=== PATIENT | male | born 2005 | race African-American/Black ===

== ENCOUNTER 2025-05-24 16:37 | Observation (INO) ==
--- NOTE | 2025-05-24 18:41 | Emergency Department Note ---
ED Provider Note History of Present Illness Chief Complaint: Infection Stated Complaint: TOOTH INFECTION, POSS SPREAD TO NECK, SOB Time Seen by Provider: 05/24/25 18:21 Source: patient Mode of arrival: ambulatory Limitations: no limitations Patient is a 19-year-old male who presents to the emergency department with complaints of possible infection in his throat or neck. Patient states that he has a dental infection and was on antibiotics but now he is having trouble breathing and swallowing, noting that the infection does not seem to be resolving. Patient states that he has had the symptoms for approximately a week. Patient notes that he is able to tolerate oral foods and fluids but has increased pain with swallowing. Patient denies any chest pain. Home Medications Medication Instructions Recorded Confirmed Type No Known Home Medications 05/24/25 05/24/25 History Allergies Allergy/AdvReac Type Severity Reaction Status Date / Time No Known Allergies Allergy Unverified 05/24/25 20:36 Past Med/Surg History Problem List (Updated 05/25/25 @ 00:59 by EDIN Barnes) Anemia Mandibular abscess (Acute) Social History Smoking Status: Current every day smoker Tobacco Type: E-cigarettes / Vaping Preferred Language: Tajik Feels Safe at Home: Yes Physical Exam Vital Signs Vital Signs - 24 hr 05/24/25 16:41 05/24/25 19:25 05/24/25 20:54 Temperature 37 C Temperature Source Skin Pulse Rate 106 H Pulse Rate [Finger] 96 H 86 Pulse Rhythm [Finger] Regular Pulse Strength [Finger] Normal Respiratory Rate 20 18 16 Respiratory Effort / Characteristics Non-Labored Spontaneous Non-Labored Respiratory Depth Normal Normal Respiratory Pattern Regular Regular Blood Pressure 137/70 Blood Pressure [Right Arm] 154/81 H 145/80 H Blood Pressure Mean 92 Blood Pressure Mean [Right Arm] 105 101 Blood Pressure Position [Right Arm] Lying Pulse Oximetry 100 100 100 Oxygen Delivery Method Room Air Room Air Sepsis Recent Fever Within 48 Hours No Sepsis New/Unexplained Change in Mental Status N/A Sepsis Action Taken by Nursing No Action Required 05/24/25 22:35 Temperature Temperature Source Pulse Rate Pulse Rate [Finger] 84 Pulse Rhythm [Finger] Regular Pulse Strength [Finger] Normal Respiratory Rate 16 Respiratory Effort / Characteristics Non-Labored Spontaneous Respiratory Depth Normal Respiratory Pattern Regular Blood Pressure Blood Pressure [Right Arm] 113/73 Blood Pressure Mean Blood Pressure Mean [Right Arm] 86 Blood Pressure Position [Right Arm] Lying Pulse Oximetry 97 Oxygen Delivery Method Room Air Sepsis Recent Fever Within 48 Hours Sepsis New/Unexplained Change in Mental Status Sepsis Action Taken by Nursing VITAL SIGNS - Vital signs and nursing notes were reviewed. GENERAL -19-year-old male appearing their stated age, who is in no acute distress. Communicates well with provider and answers questions appropriately. HEAD - Normocephalic, Atraumatic. EYES - PERRL with EOMI bilaterally. Sclera anicteric. Conjunctiva pink and moist with no injection. EARS - No deformities of external structures noted on gross examination bilaterally. MOUTH/OROPHARYNX - Without perioral cyanosis. Buccal mucosa pink and moist and without leukoplakia. Patient has some mild erythema and edema noted to his throat, though the patient's airway is patent. No exudates noted on the tonsils. NECK - Neck with FROM. Supple to palpation. Mild lymphadenopathy noted. LUNGS - Chest wall symmetric without accessory muscle use, intercostals retractions, or central cyanosis. Normal vesicular breath sounds CTA B/L. No wheezes, rales, or rhonchi appreciated. CARDIAC - RRR with S1/S2. No murmur, rubs, or gallops appreciated. Course Administered Medications Lactated Ringer's (Lr) 1,000 mls @ 80 mls/hr IV .[id number] [place] Stop: 05/25/25 12:41 Last Admin: 05/25/25 00:24 Dose: 80 mls/hr Documented By: SHANIKA Discontinued Medications Dexamethasone Sodium Phosphate (DexamethasonePf 10 Mg/Ml Vial) 10 mg IV NOW ONE Stop: 05/24/25 20:37 Last Admin: 05/24/25 20:50 Dose: 10 mg Documented By: deanner Ampicillin Sodium/Sulbactam Sodium (Unasyn) 3,000 mg in 100 mls @ 200 mls/hr IV NOW STA Stop: 05/24/25 21:05 Last Infusion: 05/24/25 21:40 Dose: Infused Documented By: Admin: 05/24/25 20:49 Dose: 200 mls/hr Documented By: carlota Ioversol (Optiray 320 100ml) 90 ml IV ONCE ONE Stop: 05/24/25 20:04 Last Admin: 05/24/25 20:04 Dose: 90 ml Documented By: KAEL Ketorolac Tromethamine (Ketorolac Tromethamine 15 Mg/Ml Vial) 15 mg IV NOW STA Stop: 05/24/25 20:37 Last Admin: 05/24/25 20:49 Dose: 15 mg Documented By: carlota Medical Decision Making Differential Diagnosis Dental infection, periapical abscess, mandibular abscess, peritonsillar abscess, strep throat, among others. Medical Records Attestation: I reviewed the patient's medical records. Home Medications was personally reviewed by me Laboratory Data Attestation: I reviewed the patient's lab results. 05/24/25 19:21 05/24/25 19:21 Lab Results 05/24/25 Range/Units 19:21 WBC 7.51 (4.8-10.8) K/ul RBC 4.48 L (4.70-6.10) M/uL Hgb 11.6 L (14.0-18.0) g/dL Hct 36.2 L (42.0-52.0) % MCV 80.8 (80.0-100.0) fL MCH 25.9 (25.0-34.0) pg MCHC 32.0 (32.0-36.0) g/dL RDW Std Deviation 38.3 (36.4-46.3) fL RDW Coeff of [place] 13.0 (11.5-14.5) % Plt Count 185 (130-400) K/uL MPV 10.9 (9.4-12.4) fL Immature Gran % (Auto) 0.4 % Neut % (Auto) 71.5 % Lymph % (Auto) 17.3 % Bibb % (Auto) 9.6 % Eos % (Auto) 1.1 % Baso % (Auto) 0.1 % Neut # (Auto) 5.37 (1.40-6.50) K/uL Lymph # (Auto) 1.30 (1.20-3.40) K/uL Bibb # (Auto) 0.72 H (0.11-0.59) K/uL Eos # (Auto) 0.08 (0.00-0.50) K/uL Baso # (Auto) 0.01 (0.00-0.20) K/uL Immature Gran # (Auto) 0.03 (0.01-0.20) K/uL Sodium 138 (136-145) mmol/L Potassium 3.7 (3.5-5.1) mmol/L Chloride 104 (98-107) mmol/L Carbon Dioxide 28 (21-32) mmol/L Anion Gap 6 (3-11) BUN 16 (6-23) mg/dl Creatinine 0.94 (0.6-1.4) mg/dl Est Cr Clr Drug Dosing 128.4 ml/min eGFR 118.28 BUN/Creatinine Ratio 17.0 (10-20) Glucose 88 (70-99(Fasting)) mg/dl Calcium 9.1 (8.6-10.3) mg/dl Total Bilirubin 0.3 (0.2-1.0) mg/dl AST 26 (13-39) U/L ALT 20 (7-52) U/L Alkaline Phosphatase 91 (34-104) U/L Total Protein 7.5 (6.0-8.3) gm/dl Albumin 3.9 (3.4-5.0) gm/dl Globulin 3.6 (2.5-4.0) gm/dl Albumin/Globulin Ratio 1.1 (0.9-2) Group A Strep (PCR) NOT DETECTED (NotDetected) Imaging Data Radiologist's Impression: Soft Tissue Neck CT 05/24/25 17:02 Exam(s): CT NECK SOFT TISSUE With Contrast IV Amt: 90 ml optiray 320 EXAM: CT Neck With Intravenous Contrast CLINICAL HISTORY: Reason for exam: worsening dental pain, diff breathing and swallow. TECHNIQUE: Axial computed tomography images of the neck with intravenous contrast. CTDI is 18.48 mGy and DLP is 495.49 mGy-cm. Automated exposure control was utilized for the study. A dose lowering technique was utilized adhering to the principles of ALARA. CONTRAST: Patient received 90 ml optiray 320 of IV contrast COMPARISON: None FINDINGS: Oropharynx: Nonspecific prominent palatine tonsils. Tonsillitis is not excluded. No peritonsillar abscess. Hypopharynx: Unremarkable. Larynx: Unremarkable. Normal epiglottis. Trachea: Unremarkable. Retropharyngeal space: Unremarkable. Submandibular/parotid glands: Unremarkable. Glands are normal in size. Thyroid: Unremarkable. No enlarged or calcified nodules. Bones/joints: Partial fusion of C5 and C6. No acute fracture. Soft tissues: Right mandibular soft tissue swelling and fat stranding. Rim enhancing hypodense structure inferior to the angle of the left mandible measures approximately 2.8 x 2.5 x 2.3 cm, concerning for abscess. Vasculature: No acute findings. Lymph nodes: Enlarged left submandibular and submental lymph nodes. Enlarged left cervical lymph nodes. Dental: Dental disease involving bilateral impacted 3rd mandibular molars and left 3rd maxillary molar. Lung apices: Unremarkable as visualized. IMPRESSION: 1. Right mandibular soft tissue swelling and fat stranding. Rim enhancing hypodense structure inferior to the angle of the left mandible measures approximately 2.8 x 2.5 x 2.3 cm, concerning for abscess. 2. Dental disease involving bilateral impacted 3rd mandibular molars and left 3rd maxillary molar. 3. Enlarged left submandibular and submental lymph nodes. Enlarged left cervical lymph nodes. 4. Nonspecific prominent palatine tonsils. Tonsillitis is not excluded. Electronically signed by: Moses Bales M.D. 05/24/25 20:23 PM [facility] Narrative Patient is a 19-year-old male who presents to the emergency department with complaints of possible infection in his throat or neck. Patient states that he has a dental infection and was on antibiotics but now he is having trouble breathing and swallowing, noting that the infection does not seem to be resolving. Patient states that he has had the symptoms for approximately a week. Patient notes that he is able to tolerate oral foods and fluids but has increased pain with swallowing. Patient denies any chest pain. Patient was evaluated by myself and findings were noted in the physical exam above. Patient was ordered IV placement, lab work, strep swab, and a CT of the soft tissues of the neck. Patient's lab work resulted with a normal white blood cell count of 7.51. Patient had a mild anemia with a hemoglobin of 11.6 hematocrit of 36.2. Patient had no significant electrolyte imbalance noted. Patient had a strep swab that was completed and resulted negative. Patient has CT of the soft tissue of the neck that was completed and interpreted by radiology to show right mandibular soft tissue swelling and fat stranding. Rim-enhancing hypodense structure inferior to the angle of the left mandible measuring approximately 2.8 x 2.5 x 2.3 cm concerning for an abscess. Patient also had note of dental disease involving bilateral impacted third mandibular molars and left third maxillary molar. Patient had enlarged left submandibular and submental lymph nodes. Patient had enlarged left cervical lymph nodes. Patient also had prominent palatine tonsils. I discussed all these findings with the patient and the patient verbalized understanding. I discussed this case with Dr. Harrell who is on-call for ENT and was in the department evaluating another patient at this time. I discussed with Dr. Harrell that Dr. Pierre was on-call for oral plastics but he advised that he believes Dr. Pierre would tell me the same thing noting that the patient should be admitted to the hospital for IV antibiotics and fluids though definitive treatment would involve removing those teeth. I discussed this plan with the patient and the patient verbalized understanding and is agreeable to the plan for admission to the hospital. Patient was ordered a dose of Toradol for his discomfort, Decadron and IV Unasyn. I reached out to the [facility] hospitalist group to admit the patient here to the hospital. I gave Dr. Maher a report of the patient's chief complaint, current status and the results of his imaging and lab work. I discussed my consultation conversation with Dr. Harrell and his suggestions. Dr. Maher verbalized understanding and was agreeable to the plan to admit the patient to the hospital under his service. [facility] and management [facility] this patient. Impression Mandibular abscess Discharge Plan Visit Data Chief Complaint: Infection Stated Complaint: TOOTH INFECTION, POSS SPREAD TO NECK, SOB ED Provider: Maldonado Cotto ED Midlevel Provider: Virginia Rouse Discharge Problem: Mandibular abscess Patient Disposition: Admitted As Inpatient Condition: Fair Discharge Instructions Interventions: ED Discharge Assessment Last Done: 05/24/25 23:49 ED DC CONDITION Conditon at Discharge Condition at Discharge: Fair
[2025-05-24 19:40] LABS: Hematocrit (blood only) 36.2 % (42.0-52.0); Hemoglobin 11.6 g/dL (14.0-18.0); Immature Granulocytes # (auto) 0.03 K/uL (0.01-0.20); Immature Granulocytes % (auto) 0.4 %; Mean Corpuscular Hemoglobin 25.9 pg (25.0-34.0); Mean Corpuscular Volume 80.8 fL (80.0-100.0); Platelet Count 185 K/uL (130-400); RDW Standard Deviation 38.3 fL (36.4-46.3); Red Blood Count 4.48 M/uL (4.70-6.10); White Blood Count 7.51 K/ul (4.8-10.8)
[2025-05-24 19:56] LABS: Alanine Aminotransferase 20.0 U/L (7-52); Albumin Globulin Ratio 1.1 (0.9-2); Albumin Level 3.9 gm/dl (3.4-5.0); Alkaline Phosphatase 91.0 U/L (34-104); Anion Gap 6.0 (3-11); Bilirubin,Total 0.3 mg/dl (0.2-1.0); Blood Urea Nitrogen 16.0 mg/dl (6-23); Calcium 9.1 mg/dl (8.6-10.3); Carbon Dioxide 28.0 mmol/L (21-32); Chloride 104.0 mmol/L (98-107); Creatinine Clr Calc Pharmacy 128.4 ml/min; Globulin 3.6 gm/dl (2.5-4.0); Glucose 88.0 mg/dl (70-99(Fasting)); Potassium 3.7 mmol/L (3.5-5.1); Sodium 138.0 mmol/L (136-145); Total Protein 7.5 gm/dl (6.0-8.3)
[2025-05-24] MEDS: OPTIRAY 320 100ml IV ONE (20:04)
--- NOTE | 2025-05-24 20:24 | CT Scan Report ---
Exam(s): CT NECK SOFT TISSUE With Contrast IV Amt: 90 ml optiray 320 EXAM: CT Neck With Intravenous Contrast CLINICAL HISTORY: Reason for exam: worsening dental pain, diff breathing and swallow. TECHNIQUE: Axial computed tomography images of the neck with intravenous contrast. CTDI is 18.48 mGy and DLP is 495.49 mGy-cm. Automated exposure control was utilized for the study. A dose lowering technique was utilized adhering to the principles of ALARA. CONTRAST: Patient received 90 ml optiray 320 of IV contrast COMPARISON: None FINDINGS: Oropharynx: Nonspecific prominent palatine tonsils. Tonsillitis is not excluded. No peritonsillar abscess. Hypopharynx: Unremarkable. Larynx: Unremarkable. Normal epiglottis. Trachea: Unremarkable. Retropharyngeal space: Unremarkable. Submandibular/parotid glands: Unremarkable. Glands are normal in size. Thyroid: Unremarkable. No enlarged or calcified nodules. Bones/joints: Partial fusion of C5 and C6. No acute fracture. Soft tissues: Right mandibular soft tissue swelling and fat stranding. Rim enhancing hypodense structure inferior to the angle of the left mandible measures approximately 2.8 x 2.5 x 2.3 cm, concerning for abscess. Vasculature: No acute findings. Lymph nodes: Enlarged left submandibular and submental lymph nodes. Enlarged left cervical lymph nodes. Dental: Dental disease involving bilateral impacted 3rd mandibular molars and left 3rd maxillary molar. Lung apices: Unremarkable as visualized. IMPRESSION: 1. Right mandibular soft tissue swelling and fat stranding. Rim enhancing hypodense structure inferior to the angle of the left mandible measures approximately 2.8 x 2.5 x 2.3 cm, concerning for abscess. 2. Dental disease involving bilateral impacted 3rd mandibular molars and left 3rd maxillary molar. 3. Enlarged left submandibular and submental lymph nodes. Enlarged left cervical lymph nodes. 4. Nonspecific prominent palatine tonsils. Tonsillitis is not excluded. Electronically signed by: Moses Bales M.D. 05/24/25 20:23 PM
[2025-05-24] MEDS: KETOROLAC TROMETHAMINE 15 MG/ML VIAL IV STA (20:49)
[2025-05-24] MEDS: AMPICILLIN/SULBACTAM SOD 3,000 MG/100 ML BAG IV STA (20:49)
[2025-05-24] MEDS: dexAMETHasone**PF** 10 MG/ML VIAL IV ONE (20:50)
--- NOTE | 2025-05-24 23:04 | History & Physical Report ---
Date of Service May 24, 2025 Assessment & Plan (1) Mandibular abscess: (2) Anemia: Plan 19-year-old male no PMHx presenting for tooth infection with concerns of swallowing and ongoing pain. His evaluation is with mild anemia 11.6/36.2 on H&H, and negative strep testing. His imaging is concerning for mandibular soft tissue swelling as well as a concern for L mandibular abscess and bilateral dental disease with impacted mandibular molars. Patient to be admitted for IV antibiotics, as he has failed outpatient management with oral antibiotics. #Mandibular abscess/Periapical abscess Starting back in April 2025, responded to oral abx; Recurrence ~ 1 week [employer], completed course of Amoxicillin, but worsening symptoms/edema. No SOB, but does have difficult time swallowing 2/2 pain. Patient received Unasyn and Decadron in ED. Admission for IV abx following failure of outpatient oral abx. - CBC without leukocytosis or leukopenia; strep negative - Soft tissue neck CT mandibular soft tissue swelling and left abscess as well as bilateral dental disease with impacted mandibular molars - NPO midnight - IVF LR @ 80 mL/hr - Zofran prn N/V - Acetaminophen prn fever/ mild pain, ketorolac prn moderate/severe pain, add opioids only if absolutely necessary - Pantoprazole IV - ? draining into stomach, pain meds -- protective medication rather than for other management - d/c as necessary - Unasyn IV - continue - Dexamethasone 6 mg IV every morning - OMF Dr. Pierre consulted #Anemia- No bleeding, per pt; Not vegetarian/vegan, no prior h/o anemia; H/H 11.6/36.2 on admission - pending iron panel, ferritin, vitamin B12, and folate Dispo: Obs, med/sx VTE Prophylaxis: SCDs This document was dictated utilizing [employer]. Please excuse any grammatical errors that may be secondary to use of this software. Admission and Anticipated Discharge Date Admission Date: 05/24/2025 History of Present Illness Chief Complaint: Dental infection Primary Care Provider: NO PCP 19-year-old male no PMHx presenting for tooth infection with concerns of swallowing and ongoing pain. Reports that symptoms have been ongoing since May 15, 2025. He had initial episode with similar complaints in April, which he was treated with oral amoxicillin and the symptoms resolved. However, the presented themselves again. Starts as severe left-sided face/jaw pain, that comes and goes in "phases". States that the symptoms, at their worst are rated an 8-9 out of 10 on the pain scale. He did have a course of antibiotics that he completed 2 days [employer], but without resolution of symptoms. He has felt feverish, but has not taken his temperature. Some pain with swallowing which prompted him to come to the hospital today, no SOB. No ear pain. Is having a difficult time moving his head to the left side as it causes him tightness and pain on the left side of his face where the infection is. Denies chest pain, SOB, palpitations, abdominal pain, N/V/D/C, numbness/tingling, chills, additional URI symptoms, LUTS, weakness, syncope, or falls. ED evaluation CBC without leukocytosis leukopenia, H&H 11 .6/36.2; CMP unremarkable; strep negative; soft tissue neck CT or mandibular soft tissue swelling stranding, rim hypodense enhancing structure L mandible concerning for abscess, dental disease involving bilateral impacted mandibular molars, enlarged L submandibular/submental lymph nodes, nonspecific prominent palatine tonsils.; Provided with ketorolac 15 mg IV, dexamethasone 10 mg IV, Unasyn 3 g IV in ED. Please see Dr. Maher's attestation for adjustments/additions to treatment plan. Allergies Allergy/AdvReac Type Severity Reaction Status Date / Time No Known Allergies Allergy Unverified 05/24/25 20:36 Home Medications Medication Instructions Recorded Confirmed Type No Known Home Medications 05/24/25 05/24/25 History Past Med/Surg History Problem List (Updated 05/25/25 @ 00:59 by EDIN Barnes) Anemia Mandibular abscess (Acute) Social History Smoking Status: Never smoker Tobacco Type: E-cigarettes / Vaping Hx Alcohol Use: Yes Alcohol type: beer Hx Substance Use: No Preferred Language: Georgian Communication Ability: Effective Manager Golf Required: No Beliefs That Will Affect Care: None Current Living Situation: Alone and Parent Current Living Situation Comment: alone during semester; with parents during break Other Information That Helps Us Care for You: No Feels Safe at Home: Yes Safety Concerns: Feels Safe At This Time Assistive Devices: Glasses Review of Systems Review of Systems: All systems reviewed & are unremarkable except as noted in Subjective Physical Exam Physical Exam: General: No acute distress Skin: Warm and dry Head: Normocephalic, atraumatic Eyes: PERRL, conjunctivae clear, sclera non-icteric; wearing glasses ENT: External ear and ear canal without swelling; nose atraumatic; fair dentition, L side jaw/face significant swelling no erythema, not with warmth; difficulty opening mouth 2/2 pain, no crepitus Neck: Supple, LAD cervical Cardio: RRR, no M/G/R, S1 and S2 normal Resp: No respiratory distress, Lungs CTA in all lobes bilaterally, no wheezes, rales, or rhonchi Abdomen: Soft, symmetric, nontender; No masses or hepatosplenomegaly; Bowel sounds normoactive MSK: No deformities; pulses palpable and equal; no edema. Neuro: Awake, alert; Sensation intact bilaterally; CN grossly intact Psych: Appropriate mood and affect; good judgement and insight. Female friend present in room at time of visit. Results & Data Results & Data Vital Signs (Past 12 Hours) Vital Signs Temp Pulse Pulse Resp BP BP Pulse Ox 05/24/25 22:35 84 16 113/73 97 05/24/25 20:54 86 16 145/80 H 100 05/24/25 19:25 96 H 18 154/81 H 100 05/24/25 16:41 37 C 106 H 20 137/70 100 O2 Del Method 05/24/25 22:35 Room Air 05/24/25 20:54 Room Air 05/24/25 19:25 Room Air 05/24/25 16:41 Laboratory Results 05/24/25 19:21 WBC 7.51 RBC 4.48 L Hgb 11.6 L Hct 36.2 L MCV 80.8 MCH 25.9 MCHC 32.0 RDW Std Deviation 38.3 RDW Coeff of [place] 13.0 Plt Count 185 MPV 10.9 Immature Gran % (Auto) 0.4 Neut % (Auto) 71.5 Lymph % (Auto) 17.3 Rains % (Auto) 9.6 Eos % (Auto) 1.1 Baso % (Auto) 0.1 Neut # (Auto) 5.37 Lymph # (Auto) 1.30 Rains # (Auto) 0.72 H Eos # (Auto) 0.08 Baso # (Auto) 0.01 Immature Gran # (Auto) 0.03 Sodium 138 Potassium 3.7 Chloride 104 Carbon Dioxide 28 Anion Gap 6 BUN 16 Creatinine 0.94 Est Cr Clr Drug Dosing 128.4 eGFR 118.28 BUN/Creatinine Ratio 17.0 Glucose 88 Calcium 9.1 Total Bilirubin 0.3 AST 26 ALT 20 Alkaline Phosphatase 91 Total Protein 7.5 Albumin 3.9 Globulin 3.6 Albumin/Globulin Ratio 1.1 Group A Strep (PCR) NOT DETECTED Diagnostic Findings Soft Tissue Neck CT 05/24/25 17:02 Exam(s): CT NECK SOFT TISSUE With Contrast IV Amt: 90 ml optiray 320 EXAM: CT Neck With Intravenous Contrast CLINICAL HISTORY: Reason for exam: worsening dental pain, diff breathing and swallow. TECHNIQUE: Axial computed tomography images of the neck with intravenous contrast. CTDI is 18.48 mGy and DLP is 495.49 mGy-cm. Automated exposure control was utilized for the study. A dose lowering technique was utilized adhering to the principles of ALARA. CONTRAST: Patient received 90 ml optiray 320 of IV contrast COMPARISON: None FINDINGS: Oropharynx: Nonspecific prominent palatine tonsils. Tonsillitis is not excluded. No peritonsillar abscess. Hypopharynx: Unremarkable. Larynx: Unremarkable. Normal epiglottis. Trachea: Unremarkable. Retropharyngeal space: Unremarkable. Submandibular/parotid glands: Unremarkable. Glands are normal in size. Thyroid: Unremarkable. No enlarged or calcified nodules. Bones/joints: Partial fusion of C5 and C6. No acute fracture. Soft tissues: Right mandibular soft tissue swelling and fat stranding. Rim enhancing hypodense structure inferior to the angle of the left mandible measures approximately 2.8 x 2.5 x 2.3 cm, concerning for abscess. Vasculature: No acute findings. Lymph nodes: Enlarged left submandibular and submental lymph nodes. Enlarged left cervical lymph nodes. Dental: Dental disease involving bilateral impacted 3rd mandibular molars and left 3rd maxillary molar. Lung apices: Unremarkable as visualized. IMPRESSION: 1. Right mandibular soft tissue swelling and fat stranding. Rim enhancing hypodense structure inferior to the angle of the left mandible measures approximately 2.8 x 2.5 x 2.3 cm, concerning for abscess. 2. Dental disease involving bilateral impacted 3rd mandibular molars and left 3rd maxillary molar. 3. Enlarged left submandibular and submental lymph nodes. Enlarged left cervical lymph nodes. 4. Nonspecific prominent palatine tonsils. Tonsillitis is not excluded. Electronically signed by: Moses Bales M.D. 05/24/25 20:23 PM Medications Administered Ketorolac 15 mg IV Dexamethasone 10 mg IV Unasyn 3 mg IV Code Status & VTE Plan Code Status Full Supervising Physician Co-Signing Physician Notes Attending addendum: I have physically seen this patient, have supervised the ANUJ's activities, and agree with the H&P unless as otherwise noted. Assessment and Plan: The patient is a 19-year-old male with no significant past medical history, who presents to the emergency department for a dental infection, with more recent difficulty with swallowing and worsening pain. CT of the soft tissue of the neck demonstrated significant bilateral mandibular and submandibular disease, along with dental infection. Patient is referred for evaluation for admission to the [facility]ist service, with consult to [facility] as a failure of outpatient treatment with oral antibiotics. Mandibular abscess/periapical abscess/failure of outpatient treatment.- Patient reports initial infection April 2025 appeared to respond to oral antibiotics. Reports having a recurrence 1 week prior to arrival, and was placed on amoxicillin. Due to worsening symptoms of pain and swelling and difficulty swallowing, patient presented to the ED this evening for evaluation. Given dexamethasone 10 mg IV, Toradol 15 mg IV, Unasyn 3 g IV by the ED. NPO Continue Unasyn 3 g IV every 6 hours Dexamethasone 6 mg IV every morning LR at 80 mL/h Acetaminophen 1 g IV every 8 hours as needed for mild pain or fever Toradol 15 mg IV every 6 hours as needed for moderate to severe pain Pantoprazole 40 mg IV daily Consult OMF Dr. Pierre PG Care Time/CCT Total # of Minutes Spent Total Time Spent with Patient: Total time spent is greater than 50% in coordination of care (as documented) at patient's floor/unit and/or counseling patient: Coding Level of Care Code 80510 INT INP/OBS CARE 3/75MIN Diagnoses Mandibular abscess M27.2 Anemia D64.9
[2025-05-25] MEDS ORDERED: MELATONIN 3 MG TAB PO PRN (00:12)
[2025-05-25] MEDS ORDERED: ONDANSETRON INJ 2 MG/ML 2 ML VIAL IV PRN (00:12)
[2025-05-25] MEDS ORDERED: POLYETHYLENE (MIRALAX) 17 GM PACK PO PRN (00:12)
[2025-05-25] MEDS ORDERED: ACETAMINOPHEN 1,000 MG/100 ML VIAL IV PRN (00:19)
[2025-05-25] MEDS: LACTATED RINGER'S 1,000 ML IV SCH ×2 (00:24→15:45)
[2025-05-25] MEDS: AMPICILLIN/SULBACTAM SOD 3,000 MG/100 ML BAG IV SCH (01:55)
[2025-05-25 07:42] LABS: Iron 29.0 mcg/dl (35-175); Total Iron Binding Cap Calc 246.0 mcg/dl (250-450); Transferrin 176.0 mg/dl (200-360); Transferrin (FE) Percent Satur 12.0 % (20-50)
[2025-05-25 08:01] LABS: Ferritin 246.4 ng/ml (8-388)
[2025-05-25 08:09] LABS: Folate (Folic Acid),Ser orPlas 11.74 ng/ml (>5.38)
[2025-05-25 08:10] LABS: Vitamin B12 440.0 pg/ml (180-914)
[2025-05-25 08:51] LABS: Hematocrit (blood only) 37.3 % (42.0-52.0); Hemoglobin 12.1 g/dL (14.0-18.0); Mean Corpuscular Hemoglobin 26.0 pg (25.0-34.0); Mean Corpuscular Volume 80.0 fL (80.0-100.0); Platelet Count 212 K/uL (130-400); RDW Standard Deviation 37.5 fL (36.4-46.3); Red Blood Count 4.66 M/uL (4.70-6.10); White Blood Count 10.19 K/ul (4.8-10.8)
--- NOTE | 2025-05-25 08:54 | Oral/Maxillofacial Consult ---
Date of Consultation May 25, 2025 Assessment & Plan (1) Impacted teeth with abnormal position: (2) Submandibular space infection: History of Present Illness Attending Physician: Meet Banegas History of Present Illness Oral Maxillofacial Surgery Exam Present Complaint: I have pain/swelling/drainage from my infected wisdom teeth. Symptoms have been ongoing for a while. Now left jaw swollen - came to ER admitted for infection control History of Present Illness Chief Complaint: Infection Stated Complaint: TOOTH INFECTION, POSS SPREAD TO NECK, SOB Patient is a 19-year-old male who presents to the emergency department with complaints of possible infection in his throat or neck. Patient states that he has a dental infection and was on antibiotics but now he is having trouble breathing and swallowing, noting that the infection does not seem to be resolving. Patient states that he has had the symptoms for approximately a week. Patient notes that he is able to tolerate oral foods and fluids but has increased pain with swallowing. Patient denies any chest pain. Oral Exam: Finding--P-cor associated with the infection due to impacted tooth # 17 , tender gingival tissue with deep pocket formation. Tooth # 17 has a large carious lesion with periapical radiolucency is partial impacted, associated with left side abscess. I&D and removal of # 17 medically necessary BRAD I will also remove # 16 as it carious and rubbing the oral cheek area Imaging: CT scan was reviewed, there were no abnormal findings other then the impacted/malposed wisdom teeth. The TMJ are well positioned and no evidence of bony pathology. The sinus, supporting bone all WNL Evaluated the nerve/sinus relationship to the roots of the teeth. The following teeth were impacted # 1,16,17,32 CT Neck With Intravenous Contrast CLINICAL HISTORY: Reason for exam: worsening dental pain, diff breathing and swallow. FINDINGS: Oropharynx: Nonspecific prominent palatine tonsils. Tonsillitis is not excluded. No peritonsillar abscess. Hypopharynx: Unremarkable. Larynx: Unremarkable. Normal epiglottis. Trachea: Unremarkable. Retropharyngeal space: Unremarkable. Submandibular/parotid glands: Unremarkable. Glands are normal in size. Thyroid: Unremarkable. No enlarged or calcified nodules. Bones/joints: Partial fusion of C5 and C6. No acute fracture. Soft tissues: Right mandibular soft tissue swelling and fat stranding. Rim enhancing hypodense structure inferior to the angle of the left mandible measures approximately 2.8 x 2.5 x 2.3 cm, concerning for abscess. Vasculature: No acute findings. Lymph nodes: Enlarged left submandibular and submental lymph nodes. Enlarged left cervical lymph nodes. Dental: Dental disease involving bilateral impacted 3rd mandibular molars and left 3rd maxillary molar. Lung apices: Unremarkable as visualized. Impression 1. Right mandibular soft tissue swelling and fat stranding. Rim enhancing hypodense structure inferior to the angle of the left mandible measures approximately 2.8 x 2.5 x 2.3 cm, concerning for abscess. 2. Dental disease involving bilateral impacted 3rd mandibular molars and left 3rd maxillary molar. 3. Enlarged left submandibular and submental lymph nodes. Enlarged left cervical lymph nodes. 4. Nonspecific prominent palatine tonsils. Tonsillitis is not excluded. Soft tissue: The floor of the mouth, tongue, hard/soft palate, posterior pharyngeal area all with in normal limits, no pathology or abnormal findings noted. Tahir of the jaw is swollen and will need oral vs extraoral I&D with extraction of # 17 Oral Care: Overall oral care is good Occlusion: Class I TMJ exam: No pop, clicking, pain, good ROM, No history of TMJ injury or dysfunction Periodontal exam: Healthy gingival tissue without evidence of periodontal pathology. Head/Neck exam: Neck is supple, FROM, Able to extend and flex neck w/o difficulty, no masses, no abnormalities, no airway issues, no evidence of sleep apnea. Treatment Plan: Set up with general anesthesia in hospital due to complexity of the procedure- I&D and extraction # 17 and 16 I reviewed the treatment plan and consent with the patient Understanding was expressed. Time was given for questions regarding the surgery, risks and post op care. Discussed alternative to treatment--procedure as planned, Do not do surgery The wisdom teeth are impacted and in an abnormal position, removal is indicated and medically necessary. The following teeth are decayed and fractured and removal is indicated BRAD: Plan OR SaturdayMay 26 at 8:40 am Risks discussed: Bleeding,Pain,swelling,infection, dry socket, delayed healing, nerve injury to face,lips,tongue,chin area which could be permanent (rare). TMJ, jaw stiffness, change in bite (rare), ear pain (referred). Sinus problems like fistula or infection. Need to leave a small root fragment in place to avoid injury to nerve or sinus. Relationship of wisdom teeth to nerve/sinus and risk of jaw fracture. Home care reviewed: tooth brushing, rinsing, follow up care with Dr Pierre. diet=[id number] dental. Discussed activity level, driving/work while on Rx pain Meds. Surgery to be set up May 26 at 8:40 main OR for I&D and extraction of 16 and 17 Allergies Allergy/AdvReac Type Severity Reaction Status Date / Time No Known Allergies Allergy Unverified 05/24/25 20:36 Home Medications Medication Instructions Recorded Confirmed Type No Known Home Medications 05/24/25 05/24/25 History Patient History Social History Smoking Status: Never smoker Tobacco Type: E-cigarettes / Vaping Hx Alcohol Use: Yes Alcohol type: beer Hx Substance Use: No Preferred Language: Central African Communication Ability: Effective Certified Massage Therapist Required: No Beliefs That Will Affect Care: None Current Living Situation: Alone and Parent Current Living Situation Comment: alone during semester; with parents during break Other Information That Helps Us Care for You: No Feels Safe at Home: Yes Safety Concerns: Feels Safe At This Time Assistive Devices: None Results & Data Vital Signs (Past 12 Hours) Vital Signs Temp Pulse Resp BP Pulse Ox O2 Del Method 05/25/25 07:38 36.5 C 83 16 85/45 L 97 Room Air 05/24/25 23:44 91 H 18 134/78 98 Room Air 05/24/25 22:35 84 16 113/73 97 Room Air 05/24/25 20:54 86 16 145/80 H 100 Room Air PG Care Time/CCT Total # of Minutes Spent Total Time Spent with Patient: Total time spent is greater than 50% in coordination of care (as documented) at patient's floor/unit and/or counseling patient: Coding Level of Care Code 14445 IN/OBS CONSULT LVL 2,35M Diagnoses Impacted teeth with abnormal position K01.1 Submandibular space infection K12.2
[2025-05-25] MEDS: dexAMETHasone 6 MG in SYRINGE 0 ML IV SCH (09:09)
[2025-05-25] MEDS: PANTOprazole 40 MG/10 ML SYR IV SCH (09:09)
[2025-05-25 09:10] LABS: Anion Gap 9.0 (3-11); Blood Urea Nitrogen 12.0 mg/dl (6-23); Calcium 9.8 mg/dl (8.6-10.3); Carbon Dioxide 25.0 mmol/L (21-32); Chloride 104.0 mmol/L (98-107); Creatinine Clr Calc Pharmacy 141.9 ml/min; Glucose 136.0 mg/dl (70-99(Fasting)); Potassium 4.3 mmol/L (3.5-5.1); Sodium 138.0 mmol/L (136-145)
--- NOTE | 2025-05-25 15:01 | Hospitalist Progress Note ---
Date of Service May 25, 2025 Assessment & Plan (1) Mandibular abscess: (2) Anemia: Plan 19-year-old male no PMHx presenting for tooth infection with concerns of swallowing and ongoing pain. His evaluation is with mild anemia 11.6/36.2 on H&H, and negative strep testing. His imaging is concerning for mandibular soft tissue swelling as well as a concern for L mandibular abscess and bilateral dental disease with impacted mandibular molars. Patient to be admitted for IV antibiotics, OMFS consultation. #Mandibular abscess/Periapical abscess - s/p 3 rounds of IV abx. Most recent course of amoxcillin one week ago. Presents with worsening symptoms/edema, difficulty opening his mouth. CBC without leukocytosis. [place] spot and strep negative. Continue Unasyn OMFS consulted - plan for I&D with tooth extraction, 05/26. NPO at midnight, clear liquids until then, Continue Dexamethasone daily #Anemia- No bleeding, per pt; Not vegetarian/vegan, no prior h/o anemia; B12/folate WNL iron studies consistent with ANAT - suspect elevated Ferritin acute phase reactant from acute infection start PO Ferritin with increase PO intake post op Dispo:continued inpatient stay, OR tomorrow VTE Prophylaxis: SCDs Admission and Anticipated Discharge Date Admission Date: May 24, 2025 Subjective Patient seen resting in bed. reports that he is doing okay, denies throat pain or swelling he has had 3 rounds of outpatient antibiotics but came to the hospital as the mobility of his jaw has decreased. has not seen Dr. Pierre yet - but aware will probably need drained was tolerating liquids prior to coming to the hospital Review of Systems Review of Systems: All systems reviewed & are unremarkable except as noted in Subjective Physical Exam Physical Exam: General: NAD, vitals as above, sitting on the side of bed HEENT: visable swelling to the left mandible area Pulm: breathing unlabored CV: well perfused extremities: moves all extremities, ambulating around the room Results & Data Results & Data Vital Signs (Past 12 Hours) Vital Signs Temp Pulse Resp BP Pulse Ox O2 Del Method 05/25/25 07:38 97.7 F 83 16 85/45 L 97 Room Air Laboratory Results cbc, chemistry and monospot reviewed PG Care Time/CCT Total # of Minutes Spent Total Time Spent with Patient: Total time spent is greater than 50% in coordination of care (as documented) at patient's floor/unit and/or counseling patient: Coding Level of Care Code 44319 SUB INP/OBS CARE 235MIN Diagnoses Mandibular abscess M27.2 Anemia D64.9
[2025-05-25] MEDS: CHLORHEXIDINE GLUCONATE 0.12% 480 ML MT PRN (19:33)
[2025-05-26] MEDS: KETOROLAC TROMETHAMINE 15 MG/ML VIAL IV PRN (01:44)
[2025-05-26] MEDS ORDERED: MIDAZOLAM HCL 1 MG/ML 2ML VIAL ONE (07:35)
[2025-05-26] MEDS ORDERED: ROCURONIUM BROMIDE 10 MG/ML 5 ML VIAL IV ONE (07:35)
[2025-05-26] MEDS ORDERED: PROPOFOL IV EMULSION 10 MG/ML 20 ML VIAL IV ONE (07:35)
[2025-05-26] MEDS ORDERED: ONDANSETRON INJ 2 MG/ML 2 ML VIAL ONE (07:35)
[2025-05-26] MEDS ORDERED: DEXAMETHASONE SOD INJ 4 MG/ML VIAL ONE (07:35)
[2025-05-26] MEDS ORDERED: KETAMINE HCL 10MG/ML SYR ONE (07:36)
[2025-05-26] MEDS ORDERED: DexMEDEtomidine HCL IV 100 MCG/ML VIAL IV ONE (07:36)
[2025-05-26] MEDS ORDERED: SUGAMMADEX SODIUM 200 MG/2 ML VIAL IV ONE (07:38)
[2025-05-26 07:43] LABS: Hematocrit (blood only) 31.7 % (42.0-52.0); Hemoglobin 10.4 g/dL (14.0-18.0); Mean Corpuscular Hemoglobin 26.3 pg (25.0-34.0); Mean Corpuscular Volume 80.3 fL (80.0-100.0); Platelet Count 197 K/uL (130-400); RDW Standard Deviation 38.1 fL (36.4-46.3); Red Blood Count 3.95 M/uL (4.70-6.10); White Blood Count 11.13 K/ul (4.8-10.8)
[2025-05-26 08:07] LABS: Anion Gap 5.0 (3-11); Blood Urea Nitrogen 14.0 mg/dl (6-23); Calcium 9.0 mg/dl (8.6-10.3); Carbon Dioxide 30.0 mmol/L (21-32); Chloride 106.0 mmol/L (98-107); Creatinine Clr Calc Pharmacy 119.5 ml/min; Glucose 96.0 mg/dl (70-99(Fasting)); Potassium 3.7 mmol/L (3.5-5.1); Sodium 141.0 mmol/L (136-145)
--- NOTE | 2025-05-26 08:17 | Anesthesiology Consultation ---
Date of Service May 26, 2025 Assessment & Plan Chart Review Chart Review: Acceptable Risk for Surgery and Patient NOT seen in Pre Admission Testing Consults Requested none History Surgery Operation Date: 05/26/25 08:40 Proposed Procedures p Left Jaw Incision and Drainage - Manan Pierre DMD s Removal Teeth #16, 17 - Manan Pierre DMD Height/Weight Height: 5 ft 10 in Weight: 73.7 kg Allergies Allergy/AdvReac Type Severity Reaction Status Date / Time No Known Allergies Allergy Unverified 05/24/25 20:36 Medications Home Medications Medication Instructions Recorded Confirmed Last Taken No Known Home Medications 05/24/25 05/24/25 Unknown Active Medications Generic Name Dose Route Start Last Admin Trade Name Freq PRN Reason Stop Dose Admin Chlorhexidine Gluconate 15 ml 05/25/25 15:20 05/25/25 19:33 Chlorhexidine Gluconate 0.12% 480 Ml MT 06/24/25 15:19 15 ml Q4H PRN Administration Sore Throat Ampicillin Sodium/Sulbactam Sodium 3,000 mg in 100 mls @ 200 mls/hr 05/25/25 02:00 05/26/25 07:50 Unasyn IV 06/04/25 01:59 Infused Q6H [place] Infusion Pantoprazole Sodium 40 mg in 10 mls @ 5 mls/min 05/25/25 09:00 05/26/25 07:19 Protonix IV 06/24/25 08:59 5 mls/min DAILY [place] Administration Dexamethasone 6 mg/ Syringe 1.5 mls @ 1 mls/min 05/25/25 09:00 05/26/25 07:19 IV 06/24/25 08:59 1 mls/min Q24H [place] Administration Lactated Ringer's 1,000 mls @ 80 mls/hr 05/25/25 15:00 05/26/25 04:47 Lr IV 05/28/25 14:59 80 mls/hr .[id number] [place] Administration Ketorolac Tromethamine 15 mg 05/25/25 00:19 05/26/25 01:44 Ketorolac Tromethamine 15 Mg/Ml Vial IV 05/30/25 00:18 15 mg Q6H PRN Administration Pain & Pre PT NPO Date Last Intake of Fluids: 05/25/25 Time Last Intake of Fluids: 23:50 Date Last Intake of Solids: 05/25/25 Time Last Intake of Solids: 20:00 Social History Smoking Status: Never smoker Hx Alcohol Use: Yes Alcohol type: beer alcohol intake frequency: a few times a week Hx Substance Use: No Physical Exam Vital Signs Last Vital Signs Temp 36.8 C 05/26/25 07:48 Pulse 90 05/26/25 07:48 Resp 12 05/26/25 07:48 BP 124/58 L 05/26/25 07:48 Pulse Ox 100 05/26/25 07:48 O2 Del Method Room Air 05/26/25 07:48 Testing Laboratory Results 05/26/25 07:11 05/26/25 07:11
[2025-05-26] MEDS ORDERED: ATROPINE SULFATE 0.1 MG/ML 10ML SYR IV PRN (08:25)
[2025-05-26] MEDS ORDERED: ONDANSETRON INJ 2 MG/ML 2 ML VIAL IV PRN (08:25)
--- NOTE | 2025-05-26 08:46 | History & Physical Bridge Note ---
Date of Service May 26, 2025 History & Physical Bridge Note I have examined the patient, reviewed the History & Physical and in the interval since the performance of the History & Physical I have noted the following changes of clinical significance: no changes noted. Plan --I&D left angle of the jaw and removal of impacted # 17 and fractured/decayed # 16
[2025-05-26] MEDS ORDERED: KETOROLAC 30 MG/ML VIAL IV PRN (10:10)
[2025-05-26] MEDS ORDERED: ACETAMINOPHEN 500 MG TAB PO PRN (10:10)
--- NOTE | 2025-05-26 10:10 | Post Operative Brief Note ---
PG Immediate Post Op with CF Date of Surgery May 26, 2025 Pre & Post Diagnosis Operation Date: 05/26/25 08:40 Pre-Op Diagnosis: (1) Impacted teeth with abnormal position (2) Submandibular space infection Post-Op Diagnosis: (1) Impacted teeth with abnormal position (2) Submandibular space infection I identified the patient and participated in the time-out.: Yes Procedure Operation Date: 05/26/25 08:40 Actual Procedures p Left Jaw Incision and Drainage, Removal Teeth #16, 17(Left) - Manan Pierre DMD Surgeon Manan Pierre, [employer] [employer] Manager none Estimated Blood Loss 5 Findings Consistent with Post-Op Diagnosis significant swelling angle of the left jaw superficial to the masseter muscle and impacted #17 and fractured # 16 Specimens Specimen Description: 1. Left mandibular abcess Drains [place] Drain Anesthesia Type General Complications none Disposition Accompanied Patient To Recovery: Yes
[2025-05-26] MEDS: BUPIVACAINE/EPINEPHRINE 0.5% 1:200,000 1.8 ML CARP ONE (10:15)
--- NOTE | 2025-05-26 10:28 | Anesthesiology Progress Note ---
Date of Service May 26, 2025 Anesthesia Post Procedure Vital Signs Vital Signs: Temp Pulse Pulse Resp BP BP Pulse Ox 05/26/25 10:20 74 12 139/76 99 05/26/25 10:13 36.4 C L 89 12 145/74 H 100 05/26/25 07:48 36.8 C 90 12 124/58 L 100 05/26/25 07:04 36.5 C 62 16 101/63 100 05/25/25 22:32 36.9 C 82 14 110/64 97 05/25/25 15:33 36.8 C 82 16 121/71 99 O2 Del Method O2 Flow Rate 05/26/25 10:20 Room Air 05/26/25 10:13 Oxymask 4 05/26/25 07:48 Room Air 05/26/25 07:04 Room Air 05/25/25 22:32 Room Air 05/25/25 15:33 Room Air Pain Intensity Jaw: Pain Intensity: 5 Transfer of Care Handoff Completed per policy Notes Mental Status: alert / awake / arousable Patient Amnestic to Procedure: Yes Nausea / Vomiting: adequately controlled Pain: adequately controlled Airway Patency, RR, SpO2: stable & adequate BP & HR: stable & adequate Hydration State: stable & adequate Anesthetic Complications: no major complications apparent
[2025-05-26] MEDS: HYDROmorphone INJ 0.5 MG/0.5 ML SYR IV STA (10:50)
[2025-05-26] MEDS: HYDROmorphone INJ 0.5 MG/0.5 ML SYR ONE (11:25)
[2025-05-26] MEDS: MoRPHine SULFATE 2 MG/ML CARP IV PRN (12:13)
[2025-05-26 13:13] VITALS: RESP 16
--- NOTE | 2025-05-26 16:00 | Operative Report ---
PG Post Operative Report Pre & Post Diagnosis Operation Date: 05/26/25 08:40 Pre-Op Diagnosis: (1) Impacted teeth with abnormal position (2) Submandibular space infection Post-Op Diagnosis: (1) Impacted teeth with abnormal position (2) Submandibular space infection I identified the patient and participated in the time-out.: Yes Procedure Operation Date: 05/26/25 08:40 Actual Procedures p Left Jaw Incision and Drainage, (Left) - Manan Pierre DMD s Removal Teeth #16, 17 - Manan Pierre DMD Surgeon Manan Pierre DMD Electrical And Instrumentation Manager none Estimated Blood Loss 5 Findings Consistent with Post-Op Diagnosis severe infection left angle of the mandible impacted impacted # 17 and fractured decayed # 16 Specimens I&D Drains 1/2 Jan drain left jaw Anesthesia Type General Complications none Disposition Accompanied Patient To Recovery: Yes Indications severe infection left angle of the mandible impacted impacted # 17 and fractured decayed # 16 Description of Procedure ICD10 K01.1 ICD10 K12.2 CPT 78088 Left masseter space I&D extraoral D7230 # 17 D7210 # 16 Actual Procedures p Incision and Drainage Submandibular Abscess; Removal of Tooth #16,17(Not Applicable) - Manan Pierre DMD Once cleared for surgery general anesthesia was achieved, the eyes were protected by the anesthesia dept criteria. A time out was take for patient ID, antibiotics, equipment and position verification once all agreed the procedure began. Local anesthesia using Marcaine with a vasoconstrictor ( 1.8 ml per site) given into right inferior alveolar nerve A throat pack was placed after the oral cavity was irrigated with saline. Once a surgical level of anesthesia was obtained and the local anesthesia was given time for the blocks the surgery was started. I now turned my attention to remove the impacted #17 and the fractured carious wisdom tooth #16 Upper wisdom teeth Surgical extraction #16 (D7210) An Incision was made over the tuberosity. The full thickness flap was reflected, bone removed with a rongeur, the tooth was visualized, it was close to the sinus and removed with an 81 elevator. Bony margins were trimmed, smoothed and sutured closed with a 2-0 chromic There was no sinus involvement. Lower wisdom teeth CBI # 17 (D7230) The full thick Muco-periosteal flap was made on the external oblique ridge to avoid the lingual nerve. The flap was reflected to expose the impacted tooth. The drill with a round bur was used to remove bone, a fissure bur was used to split the tooth.The lingual plate was protected. The tooth was removed with a 301 elevator, the nerve was intact, there was no bleeding. The bone was trimmed. The site was irrigated and I now turned my attention to performing the incision and drainage in the mucobuccal and retromolar pad area Incision and Drainage (CPT 88914) Using a 15 blade an incision was made lateral to the alveolar ridge in the mucobuccal fold of the lower left wisdom tooth and retromolar pad. Once the incision was made a some of pus extruded from the site. There was really not much drainage from this site. There was an area of fluctuance d irectly on the inferior border and angle of the lower jaw the left side. The facial area was prepped in the usual manner with Betadine. With a 15 blade a small stab incision was made at the most dependent area of the fluctuance which was just below the inferior border of the angle of the mandible. The site was opened with a small hemostat. Upon opening the site a significant amount of purulent material extruded from the external I&D this drainage was cultured for anaerobic and aerobic bacteria. A curved hemostat was carefully placed into the infected space along the lateral side of the lower jaw and into the previously made site in the mucobuccal fold. I now established a through and through drainage portal from the oral cavity through the masseter muscle exiting on the inferior border of the angle of the jaw. Some further drainage was now allowed to escape. I palpated the angle of the jaw area and no further drainage was expressed. The area was irrigated with at least 100 ml of NS solution. I now replaced the hemostat externally and tracked it up into the oral cavity now using a half half-inch [place] drain this was carefully pulled through from the mouth to the external chin area incision. With the use of a 4-0 nylon suture a suture was placed to stabilize to drain in the soft tissue of the angle of the jaw. The Jan drain was trimmed. I now turned my attention int raorally and was able to carefully suture the wisdom tooth site with a 2-0 chromic suture with great care being not to suture the drain in place. The drain was positioned slightly above the removal site. This established through and through drainage. My plan is to remove the drain in my office on May 28 at 9 AM. At that time the patient will be traveling back to [facility] for the break. I will see him again postoperatively when he returns in early June. I inspected the sites to insure all bleeding was controlled. I removed the throat pack and suctioned the throat. A gauze pressure dressings was placed. All instrument and sponge count was correct. The patient was allowed to awake from the anesthesia. Once full awake the anesthesia tube was removed and the patient was taken to the recovery room with all vital sign stable. The patient tolerated the surgery very well. I will follow the patient in my office, Rx and instructions will be given upon discharge. I attest to the content of the Intraoperative Record and any orders documented therein. Any exceptions are noted below.
--- NOTE | 2025-05-26 16:13 | Progress Note ---
Date of Service May 26, 2025 Assessment & Plan Admission and Anticipated Discharge Date Admission Date: May 24, 2025 Subjective Post Op infection evaluation at 6 hours post op The patient tolerated he I&D and wisdom extractions very well The infected area was drained both inside and onside of the mouth and a 1/2 pen deric drain was placed. Good further drainage is noted. Drain will be removed at 9 am in my office on Saturday Cultures pending I will check to make sure the Infection is responding to the antibiotics, extractions and the I and D before he returns home on Saturday I requested that the patient continue with massage, heat and wound care. At this time the is OK for Discharge Rx sent to [facility] () RTC May 28 at 9 am Results & Data Vital Signs (Past 12 Hours) Vital Signs Temp Pulse Pulse Resp BP BP Pulse Ox 05/26/25 13:13 36.7 C 66 16 122/80 98 05/26/25 12:15 56 L 14 133/83 98 05/26/25 11:45 36.5 C 52 L 14 126/82 97 05/26/25 11:15 37 C 85 14 126/84 100 05/26/25 11:00 36.6 C 59 L 12 111/62 98 05/26/25 10:50 70 12 126/72 98 05/26/25 10:40 53 L 12 124/69 96 05/26/25 10:30 67 13 139/75 97 05/26/25 10:20 74 12 139/76 99 05/26/25 10:13 36.4 C L 89 12 145/74 H 100 05/26/25 07:48 36.8 C 90 12 124/58 L 100 05/26/25 07:04 36.5 C 62 16 101/63 100 O2 Del Method O2 Flow Rate 05/26/25 13:13 Room Air 05/26/25 12:15 Room Air 05/26/25 11:45 Room Air 05/26/25 11:15 Room Air 05/26/25 11:00 Room Air 05/26/25 10:50 Room Air 05/26/25 10:40 Room Air 05/26/25 10:30 Room Air 05/26/25 10:20 Room Air 05/26/25 10:13 Oxymask 4 05/26/25 07:48 Room Air 05/26/25 07:04 Room Air PG Care Time/CCT Total # of Minutes Spent Total Time Spent with Patient: Total time spent is greater than 50% in coordination of care (as documented) at patient's floor/unit and/or counseling patient: Coding Level of Care Code None
--- NOTE | 2025-05-26 16:25 | Discharge Summary ---
Discharge Summary Date of Service May 26, 2025 Principal Dx & Hospital Course #1 = Principal Diagnosis (1) Mandibular abscess: (2) Anemia: Plan #Mandibular abscess/Periapical abscess 19-year-old male no PMHx presenting for tooth infection with concerns of swallowing and ongoing pain. His evaluation is with mild anemia 11.6/36.2 on H&H, and negative strep testing. His imaging is concerning for mandibular soft tissue swelling as well as a concern for L mandibular abscess and bilateral dental disease with impacted mandibular molars. Patient to be admitted for IV antibiotics, OMFS consultation. S/p left jaw I&D with tooth extraction 16&[address] Pierre 05/26 with drain placement. Recieved unasyn and dexamethasone while inpatient. Discharged with Augmentin and [place] per OMFS, will follow up with them on Saturday. #Anemia- No bleeding, per pt; Not vegetarian/vegan, no prior h/o anemia;B12/folate WNL iron studies consistent low with elevated Ferrtitin - ANAT vs thalassemia. Defer further eval to PCP Dispo:discharge to home with OMFS follow up Notes For Next Care Provider Follow-up on anemia Medication Changes From Visit See Medicare in list Admission HPI Per Admitting Provider 19-year-old male no PMHx presenting for tooth infection with concerns of swallowing and ongoing pain. Reports that symptoms have been ongoing since May 15, 2025. He had initial episode with similar complaints in April, which he was treated with oral amoxicillin and the symptoms resolved. However, the presented themselves again. Starts as severe left-sided face/jaw pain, that comes and goes in "phases". States that the symptoms, at their worst are rated an 8-9 out of 10 on the pain scale. He did have a course of antibiotics that he completed 2 days CLINICAL TECH, but without resolution of symptoms. He has felt feverish, but has not taken his temperature. Some pain with swallowing which prompted him to come to the hospital today, no SOB. No ear pain. Is having a difficult time moving his head to the left side as it causes him tightness and pain on the left side of his face where the infection is. Denies chest pain, SOB, palpitations, abdominal pain, N/V/D/C, numbness/tingling, chills, additional URI symptoms, LUTS, weakness, syncope, or falls. ED evaluation CBC without leukocytosis leukopenia, H&H 11 .6/36.2; CMP unremarkable; strep negative; soft tissue neck CT or mandibular soft tissue swelling stranding, rim hypodense enhancing structure L mandible concerning for abscess, dental disease involving bilateral impacted mandibular molars, enlarged L submandibular/submental lymph nodes, nonspecific prominent palatine tonsils.; Provided with ketorolac 15 mg IV, dexamethasone 10 mg IV, Unasyn 3 g IV in ED. Please see Dr. Maher's attestation for adjustments/additions to treatment plan. Discharge Exam General: NAD, vitals as above, sitting on the side of bed HEENT: visable swelling to the left mandible area, ice in place Pulm: breathing unlabored, CTA anteriorly CV: well perfused. RRR extremities: moves all extremities, ambulating around the room Discharge Plan Discharge Items Patient Disposition: Home - Self-Care Reason For Visit: PERIAPICAL INFECTION/MANDIBULAR ABSCESS Discharge Diagnosis: s/p I&D left jaw Condition on Discharge: Fair Activity: Resume your previous activity Lifting: Gradually increase as tolerated Bathing: No limitations Exercise/Sports: Gradually increase as tolerated Driving/Machine Use: Resume 1 day after discharge Weightbearing: Full weightbearing Non-emergency contact: Surgeon Call non-emergency contact if: your temperature is above 101.5, your wound has increased redness, your wound has increased drainage and your wound pain has increased Follow-up/Referrals: Manan Pierre, JOLIE [Physician] - PCP,NO [Primary Care Provider] - Diet: Regular, Full liquid and Clear liquid Diet Texture: Easy to Chew Diet Comment: advnce as tolerated Addtl Attending Provider Instructions: ADDITIONAL ACTIVITY RECOMMENDATIONS: * [place] teeth after every meal. It is very important to keep your mouth clean to prevent infection. * Starting tonight rinse with the Peridex as directed then 2 x a day * it is very important to keep well hydrated, this prevents fever and possible dry socket pain SPECIAL CARE INSTRUCTIONS: *It is not uncommon that between day 2-4 that your swelling will be at its worst this is very normal, do not be alarmed. * Keep ice on the side of your face for the next 24 to 36 hours. This will help keep the swelling down. * After 36 hours, apply heat (hot water bottle or heating pad) for the next two days, as often as possible. * Tomorrow start rinsing your mouth with 1/2 teaspoon salt in 8 ounces warm water. This rinse should be used every 4-6 hours. * You may experience slight nausea. To prevent this, never take your medication on an empty stomach. If nauseated, take small sips of stacey gemini until you feel better; then you may start on applesauce and toast. * A certain amount of bleeding is to be expected. It is often possible to control mild oozing by placing folded gauze over the area and biting down for 30 minutes. If you are unable to control excessive bleeding, call Dr Pierre at [phone] * You may experience some discomfort for a few days. If pain or swelling increases, Call Dr Pierre * Return to the office for a follow up check up on: Saturday at 9 am for drain removal * office address--[address] [place] [address] . phone # [phone] Pending Studies at Discharge: Yes Studies:: C&C results Stand-Alone Forms: My [facility] ThoroughCare, Smoking Cessation Medications and DC Order Prescriptions: Continued amoxicillin-pot clavulanate 875-125 mg tablet 1 tab PO Q12H Qty: 20 0RF hydrocodone-acetaminophen 5-325 mg tablet 1 tab PO Q4H PRN (Reason: pain) Qty: 14 0RF Discharge Orders: Discharge Order (Routine); Ordered 05/26/25 Ordered By: Manan Hill/Other Patient Handouts: [place] Teeth: Removal, Understanding Ro[place] Teeth, Ro[place] Teeth Surgery- Your Recovery, [place] Teeth: Your Treatment Plan, ED Cellulitis, Facial Admission Data Admit Date/Time: 05/24/25 23:14 Attending Provider: Shayy Wilson Admit Provider: Donny Maher Primary Care Provider: PCP,NO Other Providers: Donny Maher; Manan Pierre Other Interventions: Discharge Summary Assessment (RN) Last Done: 05/26/25 16:22 Hospital Stay Data Consultations 05/24/25 22:50 ED Decision to Admit Stat 05/25/25 00:12 Consult Oromaxillofacial Surgery Routine Procedures Performed Operation Date: 05/26/25 08:40 Actual Procedures p Left Jaw Incision and Drainage, (Left) - Manan R Pierre, DMD s Removal Teeth #16, 17 - Manan Pierre DMD Diagnostic Imagining Performed Soft Tissue Neck CT 05/24/25 17:02 Exam(s): CT NECK SOFT TISSUE With Contrast IV Amt: 90 ml optiray 320 EXAM: CT Neck With Intravenous Contrast CLINICAL HISTORY: Reason for exam: worsening dental pain, diff breathing and swallow. TECHNIQUE: Axial computed tomography images of the neck with intravenous contrast. CTDI is 18.48 mGy and DLP is 495.49 mGy-cm. Automated exposure control was utilized for the study. A dose lowering technique was utilized adhering to the principles of ALARA. CONTRAST: Patient received 90 ml optiray 320 of IV contrast COMPARISON: None FINDINGS: Oropharynx: Nonspecific prominent palatine tonsils. Tonsillitis is not excluded. No peritonsillar abscess. Hypopharynx: Unremarkable. Larynx: Unremarkable. Normal epiglottis. Trachea: Unremarkable. Retropharyngeal space: Unremarkable. Submandibular/parotid glands: Unremarkable. Glands are normal in size. Thyroid: Unremarkable. No enlarged or calcified nodules. Bones/joints: Partial fusion of C5 and C6. No acute fracture. Soft tissues: Right mandibular soft tissue swelling and fat stranding. Rim enhancing hypodense structure inferior to the angle of the left mandible measures approximately 2.8 x 2.5 x 2.3 cm, concerning for abscess. Vasculature: No acute findings. Lymph nodes: Enlarged left submandibular and submental lymph nodes. Enlarged left cervical lymph nodes. Dental: Dental disease involving bilateral impacted 3rd mandibular molars and left 3rd maxillary molar. Lung apices: Unremarkable as visualized. IMPRESSION: 1. Right mandibular soft tissue swelling and fat stranding. Rim enhancing hypodense structure inferior to the angle of the left mandible measures approximately 2.8 x 2.5 x 2.3 cm, concerning for abscess. 2. Dental disease involving bilateral impacted 3rd mandibular molars and left 3rd maxillary molar. 3. Enlarged left submandibular and submental lymph nodes. Enlarged left cervical lymph nodes. 4. Nonspecific prominent palatine tonsils. Tonsillitis is not excluded. Electronically signed by: Moses Bales M.D. 05/24/25 20:23 PM Pending Results Patient Have Any Pending Studies at Discharge: Yes Discharge Instructions Given to Patient (Per Discharging Provider) ADDITIONAL ACTIVITY RECOMMENDATIONS: * [place] teeth after every meal. It is very important to keep your mouth clean to prevent infection. * Starting tonight rinse with the Peridex as directed then 2 x a day * it is very important to keep well hydrated, this prevents fever and possible dry socket pain SPECIAL CARE INSTRUCTIONS: *It is not uncommon that between day 2-4 that your swelling will be at its worst this is very normal, do not be alarmed. * Keep ice on the side of your face for the next 24 to 36 hours. This will help keep the swelling down. * After 36 hours, apply heat (hot water bottle or heating pad) for the next two days, as often as possible. * Tomorrow start rinsing your mouth with 1/2 teaspoon salt in 8 ounces warm water. This rinse should be used every 4-6 hours. * You may experience slight nausea. To prevent this, never take your medication on an empty stomach. If nauseated, take small sips of stacey gemini until you feel better; then you may start on applesauce and toast. * A certain amount of bleeding is to be expected. It is often possible to control mild oozing by placing folded gauze over the area and biting down for 30 minutes. If you are unable to control excessive bleeding, call Dr Pierre at [phone] * You may experience some discomfort for a few days. If pain or swelling increases, Call Dr Pierre * Return to the office for a follow up check up on: Saturday at 9 am for drain removal * office address--[facility] [place]. phone # [phone] Supervising Physician Co-Signing Physician Notes PA Supervision Note: I did not personally see or examine the patient today, but I verified all malik points of JOSÉ MIGUEL Burciaga's assessment and plan with the following exceptions/additions: None Total Time Total Time Spent Total Time Spent (In Minutes): Time spent day of discharge 40 minutes including direct patient care, medication reconciliation, documentation, review of labs and images, and coordination of care. case discussed with Dr. Pierre Coding Level of Care Code 01052 INP/OBS DISCH >30 MIN Diagnoses Mandibular abscess M27.2 Anemia D64.9
[2025-05-26 17:03] VITALS: BP 128/72; PULSE 64; TEMP 97.9; O2SAT 97
== END 2025-05-26 17:07 | disposition home or self-care (01) ==
LOC: 3N 16:37 → ED 16:37 → SUATTDRO 23:14 → 3N 23:49